=== PATIENT | male | born 1965 | race Caucasian/White ===

== ENCOUNTER 2017-12-31 06:38 | Emergency (ER) | payer BC ==
--- NOTE | 2017-12-31 07:24 | EDM.PDOC ---
ED HPI GENERAL MEDICAL PROBLEM - General Chief Complaint: Cardiovascular Problem Stated Complaint: HIGH BP/HANDS ARE TINGLING Time Seen by Provider: 12/31/17 06:54 Source of Information: Reports: Patient History Limitations: Reports: No Limitations - History of Present Illness INITIAL COMMENTS - FREE TEXT/NARRATIVE: The patient states that he has had elevated blood pressure since at least June 2017, and the feeling of a strong, perhaps irregular heartbeat at night , for about one year. He states that his blood pressure is often around 170/1: 15 with a heart rate in the 70s when he measures it, although if he is relaxed, it may be as low as 120/95. He states that he had difficulty sleeping last night because of palpitations. Today he felt a tingling to the back of both of his hands, extending to about his mid forearms. It is unclear if the sensation extended all the way to the fingers, as the symptoms have nearly resolved here in the ED. He denies prior similar hand or forearm tingling. 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 The patient's PCP is Dr. Demar Marin. The patient last saw Dr. Marin in June 2017. He has an appointment to see Dr. Marin this coming Thursday, 2017. While the patient has had elevated blood pressure readings in the past, Dr. Marin did not diagnose him with hypertension, and did not prescribe an antihypertensive medication. The patient states that Dr. Marin wanted to watch it, however, the patient did not follow-up. - Related Data Allergies Allergy/AdvReac Type Severity Reaction Status Date / Time No Known Allergies Allergy Verified 12/31/17 06:43 Home Meds: Home Meds . [No Known Home Meds] 12/31/17 [History] Past Medical History Cardiovascular History: Reports: High Cholesterol (untreated) Endocrine/Metabolic History: Reports: Obesity/BMI 30+ - Past Surgical History HEENT Surgical History: Reports: Oral Surgery (Avery teeth extraction) GI Surgical History: Reports: Hernia Repair/Other (as an ) Social & Family History - Tobacco Use Smoking Status *Q: Never Smoker - Caffeine Use Caffeine Use: Reports: None - Alcohol Use Alcohol Use History: Yes Alcohol Use Frequency: Socially - Recreational Drug Use Recreational Drug Use: No - Living Situation & Occupation Living situation: Reports: , with Significant Other (Girlfriend and her son), with Family (Daughter) 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 ED EXAM, GENERAL - Physical Exam Exam: See Below Exam Limited By: No Limitations General Appearance: Alert, WD/WN, No Apparent Distress Eye Exam: Bilateral Eye: Normal Inspection Ears: Normal External Exam, Hearing Grossly Normal Nose: Normal Inspection, No Blood Throat/Mouth: Normal Inspection, Normal Lips, Normal Voice, No Airway Compromise Head: Atraumatic, Normocephalic Neck: Normal Inspection, Full Range of Motion Respiratory/Chest: No Respiratory Distress, Lungs Clear, Normal Breath Sounds, No Accessory Muscle Use Cardiovascular: Normal Peripheral Pulses, Regular Rate, Rhythm, No Edema, No Gallop, No JVD, No Murmur, No Rub Peripheral Pulses: 3+: Radial (L), Radial (R) GI/Abdominal: Normal Bowel Sounds, Soft, Non-Tender, No Organomegaly, No Distention, No Abnormal Bruit, No Mass, Other (Obese) (Male) Exam: Deferred Rectal (Males) Exam: Deferred Back Exam: Normal Inspection, Full Range of Motion, NT Extremities: Normal Inspection, Normal Range of Motion, No Pedal Edema, Normal Capillary Refill Neurological: Alert, Oriented, Normal Cognition, No Motor/Sensory Deficits (The patient reports no decreased sensation to palpation of the posterior aspects of either of his hands or distal forearms. Hand ict programmer strength is very strong in both hands. No weakness to wrist flexion or extension, either side.) Psychiatric: Normal Affect Skin Exam: Warm, Dry, Intact, Normal Color, No Rash Course - Vital Signs Last Recorded V/S: Last Vital Signs Temp 37.1 C 12/31/17 06:41 Pulse 80 12/31/17 07:36 Resp 18 12/31/17 07:36 BP 143/105 H 12/31/17 07:36 Pulse Ox 99 12/31/17 07:36 - Re-Assessments/Exams Free Text/Narrative Re-Assessment/Exam: 12/31/17 07:19 The patient presents with numerous complaints, including elevated blood pressure , difficulty sleeping at night, primarily by feeling his heart beat, then having bilateral hand and forearm tingling today. We discussed at length the issue of the patient's elevated blood pressure. Here in the ED, his BP is 165/116, with a HR of 84. This is well below any cutoff that would indicate emergent treatment. Indeed, the patient mentions that when he is relaxed, his blood pressure may go as low as 120/95 - it is very possible that the patient does not have hypertension. I am therefore recommending that he check his blood pressure 3 times a week, at different times of the day, under restful conditions. With respect to the patient's bilateral hand and forearm tingling, it is possible that the patient has carpal tunnel syndrome. Bedside evaluations aside , the way to determine this is via nerve conduction studies. The patient will be following up with his PCP, Dr. Marin, this coming 01/04/2018. If he is still symptomatic, Dr. Marin may want to order a nerve conduction study. Similarly, the patient has the sensation of a strong heartbeat when he sleeps. It is possible that the patient has obstructive sleep apnea, increasing the risk of dysrhythmias at night. Dr. Marin may want to order a Holter monitor. Departure - Departure Time of Disposition: 07:23 Disposition: Home, Self-Care 01 Condition: Good Clinical Impression: Elevated blood pressure reading, Heart palpitations, Numbness and tingling in both hands Instructions: Hypertension, [id number], Palpitations, [id number] Referrals: Demar Marin Jr, MD [Primary Care Provider] - Forms: ED Department Discharge Additional Instructions: You were seen in the emergency room for elevated blood pressure, heart palpitations at night, and hand and forearm tingling today. As discussed, in order to properly check your blood pressure, it needs to be checked under restful conditions. This means that you are sitting quietly for at least 5, and preferably 15 minutes, that you are not in pain, anxious, or sick. You should check your blood pressure at different times of the day, but only 2-3 times per week, for 2-3 weeks. Write the numbers down, and give them to Dr. Marin at your next appointment. He can then determine if you have hypertension or not. With respect to your heart palpitations, the best way to evaluate this is through a Holter monitor. Talk to Dr. Marin about this at your next appointment. With respect to your hand and forearm tingling, it is possible that you have carpal tunnel syndrome. If your symptoms persist, talk to Dr. Marin about this , as he may want to order a nerve conduction study. If any other problems, please do not hesitate to return to the ER.
[2017-12-31 07:36] VITALS: BP 143/105
== END 2017-12-31 07:35 | disposition home or self-care (01) ==
LOC: JD.ED 06:38
DX: R00.2 Palpitations (principal); R20.0 Anesthesia of skin; R03.0 Elevated blood-pressure reading, without diagnosis of hypertension
CPT/HCPCS: 99283